=== PATIENT | female | born 1975 | race Caucasian/White ===

== ENCOUNTER 2021-08-30 11:36 | Observation (INO) | payer OTHER ==
[2021-08-30] MEDS ORDERED: Reglan 10 MG/2 ML IV ONE (11:52)
[2021-08-30] MEDS ORDERED: Sodium Chloride 0.9% 1000 ML 1,000 ML IV STA (11:52)
[2021-08-30] MEDS ORDERED: TORAdol 30 mg Injection ONE (12:17)
[2021-08-30] MEDS ORDERED: Reglan 10 MG/2 ML ONE (12:17)
[2021-08-30] MEDS ORDERED: Sodium Chloride 0.9% 1000 ML 1,000 ML ONE (12:17)
--- NOTE | 2021-08-30 12:21 | ERPHSYRPT ---
- History of Present Illness Time Seen by Provider: 08/30/21 11:50 Historian: patient Patient Subjective Stated Complaint: Pt has had diarrhea for a week and vomited once yesterday and then woke up today with RLQ pain and watery diarrhea and vomiting, pt lives at [facility] and there have been reports of C-Diff within the facility Triage Nursing Assessment: Pt brought to the ER by a healthcare worker, hypotensive, rates abdominal pain as 10/10, diarrhea, vomiting, pain with palpatation to panfilo quadrants, last used meth 13-14 days ago, skin n/w/d, no difficulty with breathing, appears to be in significant pain, is on suboxone Physician History: Patient is a 45-year-old female who is a resident at a treatment center in [facility]. She presents with a complaint of severe diarrhea for a week when asked the frequency of her stools she says all day long. She has had some nausea and some vomiting since yesterday and for the 2 hours prior to arrival severe abdominal pain. She has had fever chills but no sweats Timing/Duration: week(s) (1) Activities at Onset: none Quality: cramping, stabbing Abdominal Pain Onset Location: RUQ Severity of Pain-Max: moderate Severity of Pain-Current: severe Associated Symptoms: diaphoresis, diarrhea, nausea, vomiting Allergies/Adverse Reactions: gabapentin Allergy (Verified 08/30/21 12:10) Home Medications: Buprenorphine HCl/Naloxone HCl [Suboxone 4 mg-1 mg Sl Film] 1 each SL BID 08/30/21 [History] Travel Risk - International Travel Have you traveled outside of the country in past 3 weeks: No - Coronavirus Screening Are you exhibiting any of the following symptoms?: Yes Symptoms: Vomiting/Diarrhea Close contact with a COVID-19 positive Pt in past 14-21 Days: No - Vaccine Status Have you recieved a Covid-19 vaccination: No - Review of Systems Constitutional: No Fever, No Chills Eyes: No Symptoms Ears, Nose, & Throat: No Symptoms Respiratory: No Cough, No Dyspnea Cardiac: No Chest Pain, No Edema, No Syncope Abdominal/Gastrointestinal: Abdominal Pain, Nausea, Vomiting, Diarrhea Genitourinary Symptoms: No Dysuria Musculoskeletal: No Back Pain, No Neck Pain Skin: No Rash Neurological: No Dizziness, No Focal Weakness, No Sensory Changes Psychological: No Symptoms Endocrine: No Symptoms All Other Systems: Reviewed and Negative - Past Medical History Pertinent Past Medical History: Yes GI Medical History: GERD Psycho-Social History: Anxiety - Past Surgical History Past Surgical History: Yes Female Surgical History: Section - Social History Smoking Status: Current every day smoker Exposure to second hand smoke: Yes Drug Use: methamphetamines Patient Lives Alone: No - Female History Hx Last Menstrual Period: 08/14/2021 Hx Now: No - Nursing Vital Signs Nursing Vital Signs: Initial Vital Signs Temperature 97.3 F 08/30/21 11:46 Pulse Rate 94 H 08/30/21 11:46 Blood Pressure 106/69 08/30/21 11:46 O2 Sat by Pulse Oximetry 97 08/30/21 11:46 Pain Scale Pain Intensity 10 - Physical Exam General Appearance: moderate distress, alert Eye Exam: PERRL/EOMI, eyes nml inspection Ears, Nose, Throat Exam: normal ENT inspection, pharynx normal, moist mucous membranes Neck Exam: normal inspection, non-tender, supple, full range of motion Respiratory Exam: normal breath sounds, lungs clear, No respiratory distress Cardiovascular Exam: regular rate/rhythm, normal heart sounds Gastrointestinal/Abdomen Exam: normal bowel sounds, tenderness, guarding, rebou nd, No mass Back Exam: normal inspection, normal range of motion, No CVA tenderness, No vertebral tenderness Extremity Exam: normal inspection, normal range of motion, pelvis stable Neurologic Exam: alert, oriented x 3, cooperative, normal mood/affect, nml cerebellar function, sensation nml, No motor deficits Skin Exam: normal color, warm, dry SpO2: 97 - Course Nursing assessment & vital signs reviewed: Yes - CT Exams Abdomen/Pelvis CT Interpretation: Other (CT of the abdomen showed fluid-filled dilated loops of large and small bowel also distention of the gallbladder with some stones visible. ) - Radiology Ultrasound Exam Gallbladder Ultrasound: Other (Gallbladder is distended there are stones present but no othe r signs of cholelithiasis are present) Ordered Tests: Active Orders 24 hr Category Date Time Status IV Insertion STAT Care 08/30/21 11:52 Active ABDOMEN AND PELVIS W/0 CONTRAS [CT] Stat Exams 08/30/21 11:53 Completed GALLBLADDER [US] Stat Exams 08/30/21 12:53 Completed AMYLASE Stat Lab 08/30/21 12:23 Completed BLOOD CULTURE Stat Lab 08/30/21 12:12 Received CBC W DIFF Stat Lab 08/30/21 12:23 Completed CMP Stat Lab 08/30/21 12:23 Completed FECAL OCCULT BLOOD - SCREENING Stat Lab 08/30/21 12:14 Completed LIPASE Stat Lab 08/30/21 12:23 Completed Lactic Acid Stat Lab 08/30/21 12:10 Completed PROTIME WITH INR Stat Lab 08/30/21 12:23 Completed UA W/RFX CULTURE Stat Lab 08/30/21 12:12 Completed Medication Summary Discontinued Medications Generic Name Dose Route Start Last Admin Trade Name Sam PRN Reason Stop Dose Admin Sodium Chloride 1,000 mls @ 999 mls/hr 08/30/21 11:52 08/30/21 13:35 Sodium Chloride 0.9% 1000 Ml IV 08/30/21 12:52 Infused .Q1H1M STA Infusion Sodium Chloride Confirm 08/30/21 12:17 Sodium Chloride 0.9% 1000 Ml Administered 08/30/21 12:18 Dose 1,000 mls @ ud .ROUTE .STK-MED ONE Ketorolac Tromethamine Confirm 08/30/21 12:17 Ketorolac Tromethamine 30 Mg/Ml Inj Administered 08/30/21 12:18 Dose 30 mg .ROUTE .STK-MED ONE Ketorolac Tromethamine 30 mg 08/30/21 12:36 08/30/21 12:38 Ketorolac Tromethamine 30 Mg/Ml Inj IV 08/30/21 12:37 30 mg STAT ONE Administration Metoclopramide HCl 10 mg 08/30/21 11:52 08/30/21 12:20 Metoclopramide Hcl 10 Mg/2 Ml Vial IV 08/30/21 11:53 10 mg STAT ONE Administration Metoclopramide HCl Confirm 08/30/21 12:17 Metoclopramide Hcl 10 Mg/2 Ml Vial Administered 08/30/21 12:18 Dose 10 mg .ROUTE .STK-MED ONE Lab/Rad Data: Laboratory Result Diagrams 08/30/21 12:23 08/30/21 12:23 Laboratory Results 08/30/21 08/30/21 08/30/21 Range/Units 12:30 12:23 12:23 WBC (4.0-10.5) x10^3/uL RBC (4.1-5.4) x10^6/uL Hgb (12.0-16.0) g/dL Hct (35-47) % MCV (78-100) fL MCH (26-32) pg MCHC (32-36) g/dL RDW (11.5-14.0) % Plt Count (150-450) x10^3/uL MPV (7.5-11.0) fL Gran % (36.0-66.0) % Immature Gran % (Auto) (0.00-0.4) % Nucleat RBC Rel Count (0.00-0.1) % Eos # (Auto) (0-0.5) x10^3/uL Immature Gran # (Auto) (0.00-0.03) x10^3u/L Absolute Lymphs (auto) (1.0-4.6) x10^3/uL Absolute Monos (auto) (0.0-1.3) x10^3/uL Absolute Nucleated RBC (0.00-0.01) x10^3u/L Lymphocytes % (24.0-44.0) % Monocytes % (0.0-12.0) % Eosinophils % (0.00-5.0) % Basophils % (0.0-0.4) % Absolute Granulocytes (1.4-6.9) x10^3/uL Basophils # (0-0.4) x10^3/uL PT 11.6 (9.4-12.5) SECONDS INR 1.10 (0.8-3.0) Sodium 135 L (137-145) mmol/L Potassium 4.1 (3.5-5.1) mmol/L Chloride 106 (98-107) mmol/L Carbon Dioxide 18 L (22-30) mmol/L Anion Gap 15.2 H (5-15) MEQ/L BUN 10 (7-17) mg/dL Creatinine 0.68 (0.52-1.04) mg/dL Estimated GFR > 60.0 ML/MIN Glucose 98 (74-106) mg/dL Lactic Acid (0.4-2.0) Calcium 9.0 (8.4-10.2) mg/dL Total Bilirubin 0.40 (0.2-1.3) mg/dL AST 18 (14-36) U/L ALT 11 (0-35) U/L Alkaline Phosphatase 90 (38-126) U/L Serum Total Protein 6.8 (6.3-8.2) g/dL Albumin 3.6 (3.5-5.0) g/dL Amylase 50 (30-110) U/L Lipase 28 (23-300) U/L Urinalys Dipstick Clnc Urine Color (YELLOW) Urine Appearance (CLEAR) Urine pH (5-6) Ur Specific Sabael (1.005-1.025) POC Urine Protein Conf (Negative) Urine Ketones (NEGATIVE) Urine Nitrite (NEGATIVE) Urine Bilirubin (NEGATIVE) Urine Urobilinogen (0-1) mg/dL Urine Leukocytes (NEGATIVE) Urine WBC (Auto) (0-5) /HPF Urine RBC (Auto) (0-2) /HPF Urine Bacteria (Auto) (NEGATIVE) /HPF Urine RBC (0-5) Crishtian/ul Ur Culture Indicated? Urine Glucose (NEGATIVE) mg/dL Stool Occult Blood (NEGATIVE) C. difficile Screen POSITIVE (NEGATIVE) C.difficile 027-NAP1-B1 PRESUMPTIVE NEGATIVE (NEGATIVE) 08/30/21 08/30/21 08/30/21 Range/Units 12:23 12:14 12:12 WBC 9.6 (4.0-10.5) x10^3/uL RBC 4.69 (4.1-5.4) x10^6/uL Hgb 13.0 (12.0-16.0) g/dL Hct 41.5 (35-47) % MCV 88.5 (78-100) fL MCH 27.7 (26-32) pg MCHC 31.3 L (32-36) g/dL RDW 14.8 H (11.5-14.0) % Plt Count 291 (150-450) x10^3/uL MPV 9.6 (7.5-11.0) fL Gran % 73.2 H (36.0-66.0) % Immature Gran % (Auto) 0.5 H (0.00-0.4) % Nucleat RBC Rel Count 0.0 (0.00-0.1) % Eos # (Auto) 0.35 (0-0.5) x10^3/uL Immature Gran # (Auto) 0.05 H (0.00-0.03) x10^3u/L Absolute Lymphs (auto) 1.42 (1.0-4.6) x10^3/uL Absolute Monos (auto) 0.75 (0.0-1.3) x10^3/uL Absolute Nucleated RBC 0.00 (0.00-0.01) x10^3u/L Lymphocytes % 14.7 L (24.0-44.0) % Monocytes % 7.8 (0.0-12.0) % Eosinophils % 3.6 (0.00-5.0) % Basophils % 0.2 (0.0-0.4) % Absolute Granulocytes 7.05 H (1.4-6.9) x10^3/uL Basophils # 0.02 (0-0.4) x10^3/uL PT (9.4-12.5) SECONDS INR (0.8-3.0) Sodium (137-145) mmol/L Potassium (3.5-5.1) mmol/L Chloride (98-107) mmol/L Carbon Dioxide (22-30) mmol/L Anion Gap (5-15) MEQ/L BUN (7-17) mg/dL Creatinine (0.52-1.04) mg/dL Estimated GFR ML/MIN Glucose (74-106) mg/dL Lactic Acid (0.4-2.0) Calcium (8.4-10.2) mg/dL Total Bilirubin (0.2-1.3) mg/dL AST (14-36) U/L ALT (0-35) U/L Alkaline Phosphatase (38-126) U/L Serum Total Protein (6.3-8.2) g/dL Albumin (3.5-5.0) g/dL Amylase (30-110) U/L Lipase (23-300) U/L Urinalys Dipstick Clnc MAIN LAB Urine Color YELLOW (YELLOW) Urine Appearance CLEAR (CLEAR) Urine pH 5.5 (5-6) Ur Specific Sabael 1.010 (1.005-1.025) POC Urine Protein Conf NEGATIVE (Negative) Urine Ketones NEGATIVE (NEGATIVE) Urine Nitrite NEGATIVE (NEGATIVE) Urine Bilirubin NEGATIVE (NEGATIVE) Urine Urobilinogen 0.2 (0-1) mg/dL Urine Leukocytes NEGATIVE (NEGATIVE) Urine WBC (Auto) 3-5 (0-5) /HPF Urine RBC (Auto) 0-2 (0-2) /HPF Urine Bacteria (Auto) RARE (NEGATIVE) /HPF Urine RBC NEGATIVE (0-5) Cristhian/ul Ur Culture Indicated? NO Urine Glucose NEGATIVE (NEGATIVE) mg/dL Stool Occult Blood POSITIVE A (NEGATIVE) C. difficile Screen (NEGATIVE) C.difficile 027-NAP1-B1 (NEGATIVE) 08/30/21 Range/Units 12:10 WBC (4.0-10.5) x10^3/uL RBC (4.1-5.4) x10^6/uL Hgb (12.0-16.0) g/dL Hct (35-47) % MCV (78-100) fL MCH (26-32) pg MCHC (32-36) g/dL RDW (11.5-14.0) % Plt Count (150-450) x10^3/uL MPV (7.5-11.0) fL Gran % (36.0-66.0) % Immature Gran % (Auto) (0.00-0.4) % Nucleat RBC Rel Count (0.00-0.1) % Eos # (Auto) (0-0.5) x10^3/uL Immature Gran # (Auto) (0.00-0.03) x10^3u/L Absolute Lymphs (auto) (1.0-4.6) x10^3/uL Absolute Monos (auto) (0.0-1.3) x10^3/uL Absolute Nucleated RBC (0.00-0.01) x10^3u/L Lymphocytes % (24.0-44.0) % Monocytes % (0.0-12.0) % Eosinophils % (0.00-5.0) % Basophils % (0.0-0.4) % Absolute Granulocytes (1.4-6.9) x10^3/uL Basophils # (0-0.4) x10^3/uL PT (9.4-12.5) SECONDS INR (0.8-3.0) Sodium (137-145) mmol/L Potassium (3.5-5.1) mmol/L Chloride (98-107) mmol/L Carbon Dioxide (22-30) mmol/L Anion Gap (5-15) MEQ/L BUN (7-17) mg/dL Creatinine (0.52-1.04) mg/dL Estimated GFR ML/MIN Glucose (74-106) mg/dL Lactic Acid 0.9 (0.4-2.0) Calcium (8.4-10.2) mg/dL Total Bilirubin (0.2-1.3) mg/dL AST (14-36) U/L ALT (0-35) U/L Alkaline Phosphatase (38-126) U/L Serum Total Protein (6.3-8.2) g/dL Albumin (3.5-5.0) g/dL Amylase (30-110) U/L Lipase (23-300) U/L Urinalys Dipstick Clnc Urine Color (YELLOW) Urine Appearance (CLEAR) Urine pH (5-6) Ur Specific Sabael (1.005-1.025) POC Urine Protein Conf (Negative) Urine Ketones (NEGATIVE) Urine Nitrite (NEGATIVE) Urine Bilirubin (NEGATIVE) Urine Urobilinogen (0-1) mg/dL Urine Leukocytes (NEGATIVE) Urine WBC (Auto) (0-5) /HPF Urine RBC (Auto) (0-2) /HPF Urine Bacteria (Auto) (NEGATIVE) /HPF Urine RBC (0-5) Cristhian/ul Ur Culture Indicated? Urine Glucose (NEGATIVE) mg/dL Stool Occult Blood (NEGATIVE) C. difficile Screen (NEGATIVE) C.difficile 027-NAP1-B1 (NEGATIVE) - Progress Progress: unchanged Discussed with : Gigi Will see patient in: hospital (observation) - Departure Departure Disposition: Observation Clinical Impression: C. difficile colitis Condition: Stable Critical Care Time: No Referrals: DOCTOR,NO FAMILY [Primary Care Provider] - Follow up/PCP as directed Instructions: Clostridioides difficile
[2021-08-30] MEDS ORDERED: TORAdol 30 mg Injection IV ONE (12:36)
--- NOTE | 2021-08-30 12:51 | XRAY ---
Indication: Abdomen pain, nausea, vomiting, and diarrhea. Multiple contiguous axial images obtained through the abdomen and pelvis without contrast. Comparison: None Lung bases clear. Heart not enlarged. Noncontrasted stomach and bowel loops appear nonobstructed. Mild uniformly fluid distended small and large bowel loops throughout with fluid leveling, ileus versus enterocolitis. Normal appearing appendix with 3-4 mm appendicolith at base. No free fluid/air. Gallbladder mildly distended with at least 2 gallstones, largest 1.3 cm. Incidental 15.6 cm splenomegaly. Remaining liver, gallbladder, pancreas, spleen, adrenal glands, kidneys, ureters, bladder, uterus, and aorta are unremarkable for noncontrast exam. Osseous structures intact. Impression: 1. Mild fluid distended small and large bowel loops with fluid leveling, ileus versus enterocolitis. 2. Mild distended gallbladder with cholelithiasis. Sonogram may yield further information if clinically warranted. 3. Incidental splenomegaly and tiny appendicolith
[2021-08-30 12:58] LABS: Absolute Neutrophil Ct (ANC) 7.05 x10^3/uL (1.4-6.9); Basophil (Absolute #) 0.02 x10^3/uL (0-0.4); Eosinophil % 3.6 % (0.00-5.0); Eosinophil (Absolute #) 0.35 x10^3/uL (0-0.5); Hematocrit 41.5 % (35-47); Lymphocyte (Absolute #) 1.42 x10^3/uL (1.0-4.6); Lymphocytes % 14.7 % (24.0-44.0); Mean Cell Volume 88.5 fL (78-100); Mean Corpuscular Hemoglobin 27.7 pg (26-32); Mean Corpuscular Hgb Concent. 31.3 g/dL (32-36); Mean Platelet Volume 9.6 fL (7.5-11.0); Monocyte (Absolute #) 0.75 x10^3/uL (0.0-1.3); Monocytes % 7.8 % (0.0-12.0); Neutrophil % 73.2 % (36.0-66.0); Platelet Count 291 x10^3/uL (150-450); Red Blood Count 4.69 x10^6/uL (4.1-5.4); Red Cell Distribution Width 14.8 % (11.5-14.0); White Blood Count 9.6 x10^3/uL (4.0-10.5)
[2021-08-30 13:04] LABS: ALBUMIN 3.6 g/dL (3.5-5.0); ALKALINE PHOSPHATASE 90 U/L (38-126); AMYLASE 50 U/L (30-110); ANION GAP 15.2 MEQ/L (5-15); BLOOD UREA NITROGEN 10 mg/dL (7-17); CHLORIDE 106 mmol/L (98-107); Carbon Dioxide 18 mmol/L (22-30); Creatinine 1 0.68 mg/dL (0.52-1.04); EST GLOMERULAR FILTRATION RATE > 60.0 ML/MIN; Glucose 98 mg/dL (74-106); LIPASE 28 U/L (23-300); Potassium 4.1 mmol/L (3.5-5.1); SGOT/AST 18 U/L (14-36); SGPT/ALT 11 U/L (0-35); SODIUM 135 mmol/L (137-145); Total Protein 6.8 g/dL (6.3-8.2)
--- NOTE | 2021-08-30 13:07 | XRAY ---
Indication: Right upper quadrant pain, nausea, and vomiting. Two-dimensional gallbladder sonogram performed. Comparison: None Pancreas not well-seen due to overlying bowel gas. Gallbladder moderately distended with a few gallstones, largest 1.5 cm. No abnormal gallbladder wall thickening or pericholecystic fluid. Common bile duct measures 5.3 mm. No intrahepatic biliary distention. Remaining visualized liver and right kidney are sonographically unremarkable. Right kidney measures 9.5 cm in length. Impression: Nonvisualization pancreas. Distended gallbladder with cholelithiasis but no cholecystitis or biliary distention.
[2021-08-30 13:19] LABS: Bacteria RARE /HPF (NEGATIVE); RBC 0-2 /HPF (0-2)
[2021-08-30 13:20] LABS: INR 1.1 (0.8-3.0); PROTIME 11.6 SECONDS (9.4-12.5)
[2021-08-30 13:22] LABS: Appearance CLEAR (CLEAR); Bilirubin NEGATIVE (NEGATIVE); Glucose NEGATIVE (NEGATIVE); Ketones NEGATIVE (NEGATIVE); Nitrite NEGATIVE (NEGATIVE); Ph 5.5 (5-6); Protein,Urine Dip NEGATIVE (Negative); RBC NEGATIVE Ery/ul (0-5); Urine Cultured Indicated? NO; Urobilinogen 0.2 mg/dL (0-1)
[2021-08-30 13:23] LABS: Dipstick done @ ? MAIN LAB
[2021-08-30 13:49] LABS: 027 TOX PROD PRESUMPTIVE NEGATIVE (NEGATIVE)
[2021-08-30 13:51] LABS: TOXIGENIC C. DIFF ORG POSITIVE (NEGATIVE)
[2021-08-30] MEDS ORDERED: Sodium Chloride 0.9% 1000 ML 1,000 ML IV SCH (14:00)
[2021-08-30] MEDS ORDERED: Zofran 4 MG/2 ML VIAL IV PRN (14:06)
[2021-08-30] MEDS ORDERED: VANCOMYCIN 1 GRAM/200 ML BAG 1 GM/200 ML PIGGYBACK IV SCH (14:15)
[2021-08-30] MEDS: Hydromorphone 1 mg/ml Injection IV PRN ×2 (14:18→18:29)
[2021-08-30 15:19] LABS: INFLUENZA A NEGATIVE (NEGATIVE); INFLUENZA B NEGATIVE (NEGATIVE); RESPIRATORY SYNCTIAL VIRUS NEGATIVE (Negative); SARS-CoV-2 Xpert Express NEGATIVE (NEGATIVE)
--- NOTE | 2021-08-30 17:16 | PCM.HP ---
History of Present Illness - Chief Complaint Chief Complaint: C. Difficile History of Present Illness: is a 45 year old female who is living at [facility] on Suboxone for Meth addiction . Patient presented to ER c/o weakness from a week long diarrhea . ER Eval. - tested positive for C dif and heme positive stool. CT abd/pelvis showed a mildy distended GB with a few gallstone. See GB US,spleen is enlarged. PMHx C/S 17 months ago,denies use of antibiotics, GERD,Anxiety. States not under the care of a PCP at this time.Her cousin is caring for her 17 month old daughter. - Review of Systems Constitutional: Weakness, Other (spell of diaphoresis) Eyes: No Symptoms Ears, Nose, & Throat: No Symptoms Respiratory: No Symptoms Cardiac: No Symptoms Abdominal/Gastrointestinal: Abdominal Pain (upper), Nausea, Vomiting, Diarrhea Genitourinary Symptoms: No Symptoms Skin: No Symptoms Neurological: No Symptoms Psychological: Anxiety, Other (Meth addiction on Suboxone) Endocrine: No Symptoms Hematologic/Lymphatic: No Symptoms Medications & Allergies Home Medications: Home Medication List Atomoxetine HCl [Strattera] 40 mg PO DAILY 08/30/21 [History Confirmed 08/30/21] Buprenorphine HCl/Naloxone HCl [Suboxone 4 mg-1 mg Sl Film] 1 each SL BID 08/30/21 [History Confirmed 08/30/21] Escitalopram Oxalate [Lexapro] 10 mg PO DAILY 08/30/21 [History Confirmed 08/30/21] Ferrous Sulfate 325 mg [Feosol 325 mg] 325 mg PO DAILY 08/30/21 [History Confirmed 08/30/21] Multivitamin 1 each PO DAILY 08/30/21 [History Confirmed 08/30/21] Omeprazole 20 mg PO DAILY 08/30/21 [History Confirmed 08/30/21] Prazosin HCl 1 mg PO QHS 08/30/21 [History Confirmed 08/30/21] Promethazine HCl 25 mg [Phenergan 25 mg] 25 mg PO Q6HPRN PRN 08/30/21 [History Confirmed 08/30/21] Trazodone HCl 50 mg [Desyrel 50 mg] 50 mg PO QHS 08/30/21 [History Confirmed 08/30/21] Allergies/Adverse Reactions: Allergies Allergy/AdvReac Type Severity Reaction Status Date / Time gabapentin Allergy Verified 08/30/21 12:10 propoxyphene AdvReac Rash Verified 08/30/21 17:04 [From Darvocet-N] - Past Medical History Past Medical History: Yes GI Medical History: GERD Pyscho-Social History: Anxiety - Female History Hx Last Menstrual Period: 08/14/2021 Are you now?: No - Past Surgical History Past Surgical History: Yes Female Surgical History: Section Other Surgical History: CSECTION X3 - Social History Smoking Status: Current every day smoker Exposure to second hand smoke: Yes Alcohol: None Drug Use: methamphetamines - Physical Exam Vital Signs: Vital Signs - 24 hr Temp Pulse Resp BP Pulse Ox 08/30/21 16:03 97.7 F 84 23 104/58 97 08/30/21 13:59 97 08/30/21 13:08 85 100/47 98 08/30/21 11:46 97.3 F 94 H 106/69 97 General Appearance: no apparent distress Neurologic Exam: alert, oriented x 3, cooperative, normal mood/affect Eye Exam: eyes nml inspection Ears, Nose, Throat Exam: normal ENT inspection Neck Exam: normal inspection Respiratory Exam: normal breath sounds Cardiovascular Exam: regular rate/rhythm Gastrointestinal/Abdomen Exam: soft, normal bowel sounds, tenderness (across upper abdomenno guarding) Pelvic Exam: not done Rectal Exam: not done Back Exam: normal inspection Extremity Exam: normal inspection Skin Exam: normal color, warm, dry Results - Labs Lab/Micro Results: Lab Results-Last 24 Hours 08/30/21 08/30/21 08/30/21 Range/Units 12:10 12:12 12:14 WBC (4.0-10.5) x10^3/uL RBC (4.1-5.4) x10^6/uL Hgb (12.0-16.0) g/dL Hct (35-47) % MCV (78-100) fL MCH (26-32) pg MCHC (32-36) g/dL RDW (11.5-14.0) % Plt Count (150-450) x10^3/uL MPV (7.5-11.0) fL Gran % (36.0-66.0) % Immature Gran % (Auto) (0.00-0.4) % Nucleat RBC Rel Count (0.00-0.1) % Eos # (Auto) (0-0.5) x10^3/uL Immature Gran # (Auto) (0.00-0.03) x10^3u/L Absolute Lymphs (auto) (1.0-4.6) x10^3/uL Absolute Monos (auto) (0.0-1.3) x10^3/uL Absolute Nucleated RBC (0.00-0.01) x10^3u/L Lymphocytes % (24.0-44.0) % Monocytes % (0.0-12.0) % Eosinophils % (0.00-5.0) % Basophils % (0.0-0.4) % Absolute Granulocytes (1.4-6.9) x10^3/uL Basophils # (0-0.4) x10^3/uL PT (9.4-12.5) SECONDS INR (0.8-3.0) Sodium (137-145) mmol/L Potassium (3.5-5.1) mmol/L Chloride (98-107) mmol/L Carbon Dioxide (22-30) mmol/L Anion Gap (5-15) MEQ/L BUN (7-17) mg/dL Creatinine (0.52-1.04) mg/dL Estimated GFR ML/MIN Glucose (74-106) mg/dL Lactic Acid 0.9 (0.4-2.0) Calcium (8.4-10.2) mg/dL Total Bilirubin (0.2-1.3) mg/dL AST (14-36) U/L ALT (0-35) U/L Alkaline Phosphatase (38-126) U/L Serum Total Protein (6.3-8.2) g/dL Albumin (3.5-5.0) g/dL Amylase (30-110) U/L Lipase (23-300) U/L Urinalys Dipstick Clnc MAIN LAB Urine Color YELLOW (YELLOW) Urine Appearance CLEAR (CLEAR) Urine pH 5.5 (5-6) Ur Specific [place] 1.010 (1.005-1.025) POC Urine Protein Conf NEGATIVE (Negative) Urine Ketones NEGATIVE (NEGATIVE) Urine Nitrite NEGATIVE (NEGATIVE) Urine Bilirubin NEGATIVE (NEGATIVE) Urine Urobilinogen 0.2 (0-1) mg/dL Urine Leukocytes NEGATIVE (NEGATIVE) Urine WBC (Auto) 3-5 (0-5) /HPF Urine RBC (Auto) 0-2 (0-2) /HPF Urine Bacteria (Auto) RARE (NEGATIVE) /HPF Urine RBC NEGATIVE (0-5) Cristhian/ul Ur Culture Indicated? NO Urine Glucose NEGATIVE (NEGATIVE) mg/dL Stool Occult Blood POSITIVE A (NEGATIVE) C. difficile Screen (NEGATIVE) C.difficile 027-NAP1-B1 (NEGATIVE) Influenza Type A Ag (NEGATIVE) Influenza Type B Ag (NEGATIVE) RSV (PCR) (Negative) SARS-CoV-2 (PCR) (NEGATIVE) 08/30/21 08/30/21 08/30/21 Range/Units 12:23 12:23 12:23 WBC 9.6 (4.0-10.5) x10^3/uL RBC 4.69 (4.1-5.4) x10^6/uL Hgb 13.0 (12.0-16.0) g/dL Hct 41.5 (35-47) % MCV 88.5 (78-100) fL MCH 27.7 (26-32) pg MCHC 31.3 L (32-36) g/dL RDW 14.8 H (11.5-14.0) % Plt Count 291 (150-450) x10^3/uL MPV 9.6 (7.5-11.0) fL Gran % 73.2 H (36.0-66.0) % Immature Gran % (Auto) 0.5 H (0.00-0.4) % Nucleat RBC Rel Count 0.0 (0.00-0.1) % Eos # (Auto) 0.35 (0-0.5) x10^3/uL Immature Gran # (Auto) 0.05 H (0.00-0.03) x10^3u/L Absolute Lymphs (auto) 1.42 (1.0-4.6) x10^3/uL Absolute Monos (auto) 0.75 (0.0-1.3) x10^3/uL Absolute Nucleated RBC 0.00 (0.00-0.01) x10^3u/L Lymphocytes % 14.7 L (24.0-44.0) % Monocytes % 7.8 (0.0-12.0) % Eosinophils % 3.6 (0.00-5.0) % Basophils % 0.2 (0.0-0.4) % Absolute Granulocytes 7.05 H (1.4-6.9) x10^3/uL Basophils # 0.02 (0-0.4) x10^3/uL PT 11.6 (9.4-12.5) SECONDS INR 1.10 (0.8-3.0) Sodium 135 L (137-145) mmol/L Potassium 4.1 (3.5-5.1) mmol/L Chloride 106 (98-107) mmol/L Carbon Dioxide 18 L (22-30) mmol/L Anion Gap 15.2 H (5-15) MEQ/L BUN 10 (7-17) mg/dL Creatinine 0.68 (0.52-1.04) mg/dL Estimated GFR > 60.0 ML/MIN Glucose 98 (74-106) mg/dL Lactic Acid (0.4-2.0) Calcium 9.0 (8.4-10.2) mg/dL Total Bilirubin 0.40 (0.2-1.3) mg/dL AST 18 (14-36) U/L ALT 11 (0-35) U/L Alkaline Phosphatase 90 (38-126) U/L Serum Total Protein 6.8 (6.3-8.2) g/dL Albumin 3.6 (3.5-5.0) g/dL Amylase 50 (30-110) U/L Lipase 28 (23-300) U/L Urinalys Dipstick Clnc Urine Color (YELLOW) Urine Appearance (CLEAR) Urine pH (5-6) Ur Specific [place] (1.005-1.025) POC Urine Protein Conf (Negative) Urine Ketones (NEGATIVE) Urine Nitrite (NEGATIVE) Urine Bilirubin (NEGATIVE) Urine Urobilinogen (0-1) mg/dL Urine Leukocytes (NEGATIVE) Urine WBC (Auto) (0-5) /HPF Urine RBC (Auto) (0-2) /HPF Urine Bacteria (Auto) (NEGATIVE) /HPF Urine RBC (0-5) Cristhian/ul Ur Culture Indicated? Urine Glucose (NEGATIVE) mg/dL Stool Occult Blood (NEGATIVE) C. difficile Screen (NEGATIVE) C.difficile 027-NAP1-B1 (NEGATIVE) Influenza Type A Ag (NEGATIVE) Influenza Type B Ag (NEGATIVE) RSV (PCR) (Negative) SARS-CoV-2 (PCR) (NEGATIVE) 08/30/21 08/30/21 Range/Units 12:30 14:14 WBC (4.0-10.5) x10^3/uL RBC (4.1-5.4) x10^6/uL Hgb (12.0-16.0) g/dL Hct (35-47) % MCV (78-100) fL MCH (26-32) pg MCHC (32-36) g/dL RDW (11.5-14.0) % Plt Count (150-450) x10^3/uL MPV (7.5-11.0) fL Gran % (36.0-66.0) % Immature Gran % (Auto) (0.00-0.4) % Nucleat RBC Rel Count (0.00-0.1) % Eos # (Auto) (0-0.5) x10^3/uL Immature Gran # (Auto) (0.00-0.03) x10^3u/L Absolute Lymphs (auto) (1.0-4.6) x10^3/uL Absolute Monos (auto) (0.0-1.3) x10^3/uL Absolute Nucleated RBC (0.00-0.01) x10^3u/L Lymphocytes % (24.0-44.0) % Monocytes % (0.0-12.0) % Eosinophils % (0.00-5.0) % Basophils % (0.0-0.4) % Absolute Granulocytes (1.4-6.9) x10^3/uL Basophils # (0-0.4) x10^3/uL PT (9.4-12.5) SECONDS INR (0.8-3.0) Sodium (137-145) mmol/L Potassium (3.5-5.1) mmol/L Chloride (98-107) mmol/L Carbon Dioxide (22-30) mmol/L Anion Gap (5-15) MEQ/L BUN (7-17) mg/dL Creatinine (0.52-1.04) mg/dL Estimated GFR ML/MIN Glucose (74-106) mg/dL Lactic Acid (0.4-2.0) Calcium (8.4-10.2) mg/dL Total Bilirubin (0.2-1.3) mg/dL AST (14-36) U/L ALT (0-35) U/L Alkaline Phosphatase (38-126) U/L Serum Total Protein (6.3-8.2) g/dL Albumin (3.5-5.0) g/dL Amylase (30-110) U/L Lipase (23-300) U/L Urinalys Dipstick Clnc Urine Color (YELLOW) Urine Appearance (CLEAR) Urine pH (5-6) Ur Specific [place] (1.005-1.025) POC Urine Protein Conf (Negative) Urine Ketones (NEGATIVE) Urine Nitrite (NEGATIVE) Urine Bilirubin (NEGATIVE) Urine Urobilinogen (0-1) mg/dL Urine Leukocytes (NEGATIVE) Urine WBC (Auto) (0-5) /HPF Urine RBC (Auto) (0-2) /HPF Urine Bacteria (Auto) (NEGATIVE) /HPF Urine RBC (0-5) Cristhian/ul Ur Culture Indicated? Urine Glucose (NEGATIVE) mg/dL Stool Occult Blood (NEGATIVE) C. difficile Screen POSITIVE (NEGATIVE) C.difficile 027-NAP1-B1 PRESUMPTIVE NEGATIVE (NEGATIVE) Influenza Type A Ag NEGATIVE (NEGATIVE) Influenza Type B Ag NEGATIVE (NEGATIVE) RSV (PCR) NEGATIVE (Negative) SARS-CoV-2 (PCR) NEGATIVE (NEGATIVE) - Radiology Impressions Radiology Exams & Impressions: Radiology Procedures Category Date Time Status ABDOMEN AND PELVIS W/0 CONTRAS [CT] Stat Exams 08/30/21 11:53 Completed GALLBLADDER [US] Stat Exams 08/30/21 12:53 Completed Assessment/Plan (1) C. difficile colitis Current Visit: Yes Status: Acute Assessment & Plan: IV flagyl 500mg q8h. Note Vanc was started in ER but pharmacist advised against this since 1st time Cdiff. Code(s): A04.72 - ENTEROCOLITIS D/T CLOSTRIDIUM DIFFICILE, NOT SPCF RECUR (2) Volume depletion Current Visit: Yes Status: Acute Assessment & Plan: IV fluids,monitor Code(s): E86.9 - VOLUME DEPLETION, UNSPECIFIED (3) Gall stones Current Visit: Yes Status: Acute Assessment & Plan: Surgery consult Code(s): K80.20 - CALCULUS OF GALLBLADDER W/O CHOLECYSTITIS W/O OBSTRUCTION (4) Splenomegaly Current Visit: Yes Status: Acute Assessment & Plan: unsure etiology,Hematology referral as outpatient. Code(s): R16.1 - SPLENOMEGALY, NOT ELSEWHERE CLASSIFIED (5) Methamphetamine addiction Current Visit: Yes Status: Acute Assessment & Plan: on suboxone at [facility] in [place] Code(s): F15.20 - OTHER STIMULANT DEPENDENCE, UNCOMPLICATED
[2021-08-30] MEDS ORDERED: MEDICATION INTERVENTION MC SCH ×3 (17:45)
[2021-08-30] MEDS ORDERED: FLAGYL 500 MG IVPB 500 MG/100 ML BAG IV SCH (18:00)
[2021-08-30] MEDS: FLAGYL 500 MG IVPB 500 MG/100 ML BAG IV SCH (18:26)
[2021-08-30] MEDS: Sodium Chloride 0.9% W/ 20 mEq KCl/LITER 1,000 ML IV SCH (20:32)
[2021-08-30] MEDS: TORAdol 30 mg Injection IV PRN (21:23)
[2021-08-30] MEDS: DESYREL 50 MG PO SCH (21:30)
[2021-08-30] MEDS ORDERED: BUPRENORPHINE HCL SL SCH (22:00)
[2021-08-30] MEDS ORDERED: NON-FORMULARY ITEM (Prazosin Hcl [Prazosin Hcl] 1 MG Capsule) PO SCH (22:00)
[2021-08-30] MEDS ORDERED: [UNRECOGNIZED DRUG - OTHER] SL SCH (22:00)
[2021-08-30] MEDS ORDERED: NALOXONE HCL SL SCH (22:00)
[2021-08-31] MEDS: FLAGYL 500 MG IVPB 500 MG/100 ML BAG IV SCH ×4 (00:10→22:17)
[2021-08-31] MEDS: TORAdol 30 mg Injection IV PRN ×3 (03:44→16:46)
[2021-08-31] MEDS: Sodium Chloride 0.9% W/ 20 mEq KCl/LITER 1,000 ML IV SCH ×2 (04:20→17:58)
[2021-08-31 06:03] LABS: Absolute Neutrophil Ct (ANC) 3.72 x10^3/uL (1.4-6.9); Basophil (Absolute #) 0.01 x10^3/uL (0-0.4); Eosinophil % 6.2 % (0.00-5.0); Eosinophil (Absolute #) 0.36 x10^3/uL (0-0.5); Hematocrit 34.4 % (35-47); Lymphocyte (Absolute #) 1.06 x10^3/uL (1.0-4.6); Lymphocytes % 18.2 % (24.0-44.0); Mean Cell Volume 88.2 fL (78-100); Mean Corpuscular Hemoglobin 28.2 pg (26-32); Mean Platelet Volume 9.3 fL (7.5-11.0); Monocyte (Absolute #) 0.64 x10^3/uL (0.0-1.3); Neutrophil % 63.9 % (36.0-66.0); Platelet Count 259 x10^3/uL (150-450); Red Cell Distribution Width 15.2 % (11.5-14.0); White Blood Count 5.8 x10^3/uL (4.0-10.5)
[2021-08-31 06:20] LABS: ALBUMIN 2.6 g/dL (3.5-5.0); ALKALINE PHOSPHATASE 63 U/L (38-126); ANION GAP 13.1 MEQ/L (5-15); BLOOD UREA NITROGEN 7 mg/dL (7-17); CHLORIDE 112 mmol/L (98-107); Calcium 7.9 mg/dL (8.4-10.2); Creatinine 1 0.62 mg/dL (0.52-1.04); EST GLOMERULAR FILTRATION RATE > 60.0 ML/MIN; Glucose 92 mg/dL (74-106); Potassium 4.3 mmol/L (3.5-5.1); SGOT/AST 15 U/L (14-36); SGPT/ALT 9 U/L (0-35); SODIUM 136 mmol/L (137-145); Total Protein 5.3 g/dL (6.3-8.2)
[2021-08-31 06:25] LABS: Carbon Dioxide 17 mmol/L (22-30)
[2021-08-31] MEDS: Protonix 40MG Tablet PO SCH (09:50)
[2021-08-31] MEDS: Lexapro PO SCH (09:50)
[2021-08-31] MEDS: THERAGRAN MULTIVITAMIN PO SCH (09:50)
[2021-08-31] MEDS: FEOSOL 325 MG PO SCH (09:50)
[2021-08-31] MEDS ORDERED: ATOMOXETINE HCL 40 MG PO SCH (10:00)
[2021-08-31] MEDS ORDERED: NON-FORMULARY ITEM (Omeprazole [Omeprazole] 20 MG Capsule.Dr) PO SCH (10:00)
[2021-08-31] MEDS ORDERED: NON-FORMULARY ITEM (Multivitamin [Multivitamin] 1 EACH Tablet) PO SCH (10:00)
--- NOTE | 2021-08-31 10:45 | PCM.NOTE ---
Date and Time: 08/31/21 1042 Subjective Assessment: patient continues to have significant diarrhea overnight and was incontinent of stool even. has some cramping in her abdomen/side. she is tolerating po intake Objective Exam General Appearance: no apparent distress, alert Respiratory Exam: normal breath sounds, lungs clear, No respiratory distress Cardiovascular Exam: regular rate/rhythm, normal heart sounds Gastrointestinal/Abdomen Exam: soft, normal bowel sounds, No tenderness, No mass OBJECTIVE DATA Vital Signs: Vital Signs - 24 hr Temp Pulse Resp BP Pulse Ox 08/31/21 07:15 97.9 F 73 16 108/59 98 08/31/21 04:00 99.4 F 87 18 108/65 98 08/31/21 00:00 98.9 F 84 18 100/55 98 08/30/21 20:00 97.5 F 84 20 101/58 98 08/30/21 17:05 97.7 F 84 23 104/58 97 08/30/21 16:03 97.7 F 84 23 104/58 97 08/30/21 13:59 97 08/30/21 13:08 85 100/47 98 08/30/21 11:46 97.3 F 94 H 106/69 97 Pain Assessment - Last Documented Pain Intensity 5 Pain Scale Used 0-10 Pain Scale Intake and Output: Intake & Output 08/28/21 08/29/21 08/30/21 08/31/21 11:59 11:59 11:59 11:59 Intake Total 3464 Balance 3464 Weight 90.718 kg 90.718 kg Lab Results: Lab Results-Last 24 Hours 08/30/21 08/30/21 08/30/21 Range/Units 12:10 12:12 12:14 WBC (4.0-10.5) x10^3/uL RBC (4.1-5.4) x10^6/uL Hgb (12.0-16.0) g/dL Hct (35-47) % MCV (78-100) fL MCH (26-32) pg MCHC (32-36) g/dL RDW (11.5-14.0) % Plt Count (150-450) x10^3/uL MPV (7.5-11.0) fL Gran % (36.0-66.0) % Immature Gran % (Auto) (0.00-0.4) % Nucleat RBC Rel Count (0.00-0.1) % Eos # (Auto) (0-0.5) x10^3/uL Immature Gran # (Auto) (0.00-0.03) x10^3u/L Absolute Lymphs (auto) (1.0-4.6) x10^3/uL Absolute Monos (auto) (0.0-1.3) x10^3/uL Absolute Nucleated RBC (0.00-0.01) x10^3u/L Lymphocytes % (24.0-44.0) % Monocytes % (0.0-12.0) % Eosinophils % (0.00-5.0) % Basophils % (0.0-0.4) % Absolute Granulocytes (1.4-6.9) x10^3/uL Basophils # (0-0.4) x10^3/uL PT (9.4-12.5) SECONDS INR (0.8-3.0) Sodium (137-145) mmol/L Potassium (3.5-5.1) mmol/L Chloride (98-107) mmol/L Carbon Dioxide (22-30) mmol/L Anion Gap (5-15) MEQ/L BUN (7-17) mg/dL Creatinine (0.52-1.04) mg/dL Estimated GFR ML/MIN Glucose (74-106) mg/dL Lactic Acid 0.9 (0.4-2.0) Calcium (8.4-10.2) mg/dL Total Bilirubin (0.2-1.3) mg/dL AST (14-36) U/L ALT (0-35) U/L Alkaline Phosphatase (38-126) U/L Serum Total Protein (6.3-8.2) g/dL Albumin (3.5-5.0) g/dL Amylase (30-110) U/L Lipase (23-300) U/L Urinalys Dipstick Clnc MAIN LAB Urine Color YELLOW (YELLOW) Urine Appearance CLEAR (CLEAR) Urine pH 5.5 (5-6) Ur Specific Post 1.010 (1.005-1.025) POC Urine Protein Conf NEGATIVE (Negative) Urine Ketones NEGATIVE (NEGATIVE) Urine Nitrite NEGATIVE (NEGATIVE) Urine Bilirubin NEGATIVE (NEGATIVE) Urine Urobilinogen 0.2 (0-1) mg/dL Urine Leukocytes NEGATIVE (NEGATIVE) Urine WBC (Auto) 3-5 (0-5) /HPF Urine RBC (Auto) 0-2 (0-2) /HPF Urine Bacteria (Auto) RARE (NEGATIVE) /HPF Urine RBC NEGATIVE (0-5) Cristhian/ul Ur Culture Indicated? NO Urine Glucose NEGATIVE (NEGATIVE) mg/dL Stool Occult Blood POSITIVE A (NEGATIVE) C. difficile Screen (NEGATIVE) C.difficile 027-NAP1-B1 (NEGATIVE) Influenza Type A Ag (NEGATIVE) Influenza Type B Ag (NEGATIVE) RSV (PCR) (Negative) SARS-CoV-2 (PCR) (NEGATIVE) 08/30/21 08/30/21 08/30/21 Range/Units 12:23 12:23 12:23 WBC 9.6 (4.0-10.5) x10^3/uL RBC 4.69 (4.1-5.4) x10^6/uL Hgb 13.0 (12.0-16.0) g/dL Hct 41.5 (35-47) % MCV 88.5 (78-100) fL MCH 27.7 (26-32) pg MCHC 31.3 L (32-36) g/dL RDW 14.8 H (11.5-14.0) % Plt Count 291 (150-450) x10^3/uL MPV 9.6 (7.5-11.0) fL Gran % 73.2 H (36.0-66.0) % Immature Gran % (Auto) 0.5 H (0.00-0.4) % Nucleat RBC Rel Count 0.0 (0.00-0.1) % Eos # (Auto) 0.35 (0-0.5) x10^3/uL Immature Gran # (Auto) 0.05 H (0.00-0.03) x10^3u/L Absolute Lymphs (auto) 1.42 (1.0-4.6) x10^3/uL Absolute Monos (auto) 0.75 (0.0-1.3) x10^3/uL Absolute Nucleated RBC 0.00 (0.00-0.01) x10^3u/L Lymphocytes % 14.7 L (24.0-44.0) % Monocytes % 7.8 (0.0-12.0) % Eosinophils % 3.6 (0.00-5.0) % Basophils % 0.2 (0.0-0.4) % Absolute Granulocytes 7.05 H (1.4-6.9) x10^3/uL Basophils # 0.02 (0-0.4) x10^3/uL PT 11.6 (9.4-12.5) SECONDS INR 1.10 (0.8-3.0) Sodium 135 L (137-145) mmol/L Potassium 4.1 (3.5-5.1) mmol/L Chloride 106 (98-107) mmol/L Carbon Dioxide 18 L (22-30) mmol/L Anion Gap 15.2 H (5-15) MEQ/L BUN 10 (7-17) mg/dL Creatinine 0.68 (0.52-1.04) mg/dL Estimated GFR > 60.0 ML/MIN Glucose 98 (74-106) mg/dL Lactic Acid (0.4-2.0) Calcium 9.0 (8.4-10.2) mg/dL Total Bilirubin 0.40 (0.2-1.3) mg/dL AST 18 (14-36) U/L ALT 11 (0-35) U/L Alkaline Phosphatase 90 (38-126) U/L Serum Total Protein 6.8 (6.3-8.2) g/dL Albumin 3.6 (3.5-5.0) g/dL Amylase 50 (30-110) U/L Lipase 28 (23-300) U/L Urinalys Dipstick Clnc Urine Color (YELLOW) Urine Appearance (CLEAR) Urine pH (5-6) Ur Specific Post (1.005-1.025) POC Urine Protein Conf (Negative) Urine Ketones (NEGATIVE) Urine Nitrite (NEGATIVE) Urine Bilirubin (NEGATIVE) Urine Urobilinogen (0-1) mg/dL Urine Leukocytes (NEGATIVE) Urine WBC (Auto) (0-5) /HPF Urine RBC (Auto) (0-2) /HPF Urine Bacteria (Auto) (NEGATIVE) /HPF Urine RBC (0-5) Cristhian/ul Ur Culture Indicated? Urine Glucose (NEGATIVE) mg/dL Stool Occult Blood (NEGATIVE) C. difficile Screen (NEGATIVE) C.difficile 027-NAP1-B1 (NEGATIVE) Influenza Type A Ag (NEGATIVE) Influenza Type B Ag (NEGATIVE) RSV (PCR) (Negative) SARS-CoV-2 (PCR) (NEGATIVE) 08/30/21 08/30/21 08/31/21 Range/Units 12:30 14:14 05:20 WBC 5.8 (4.0-10.5) x10^3/uL RBC 3.90 L (4.1-5.4) x10^6/uL Hgb 11.0 L (12.0-16.0) g/dL Hct 34.4 L (35-47) % MCV 88.2 (78-100) fL MCH 28.2 (26-32) pg MCHC 32.0 (32-36) g/dL RDW 15.2 H (11.5-14.0) % Plt Count 259 (150-450) x10^3/uL MPV 9.3 (7.5-11.0) fL Gran % 63.9 (36.0-66.0) % Immature Gran % (Auto) 0.5 H (0.00-0.4) % Nucleat RBC Rel Count 0.0 (0.00-0.1) % Eos # (Auto) 0.36 (0-0.5) x10^3/uL Immature Gran # (Auto) 0.03 (0.00-0.03) x10^3u/L Absolute Lymphs (auto) 1.06 (1.0-4.6) x10^3/uL Absolute Monos (auto) 0.64 (0.0-1.3) x10^3/uL Absolute Nucleated RBC 0.00 (0.00-0.01) x10^3u/L Lymphocytes % 18.2 L (24.0-44.0) % Monocytes % 11.0 (0.0-12.0) % Eosinophils % 6.2 H (0.00-5.0) % Basophils % 0.2 (0.0-0.4) % Absolute Granulocytes 3.72 (1.4-6.9) x10^3/uL Basophils # 0.01 (0-0.4) x10^3/uL PT (9.4-12.5) SECONDS INR (0.8-3.0) Sodium (137-145) mmol/L Potassium (3.5-5.1) mmol/L Chloride (98-107) mmol/L Carbon Dioxide (22-30) mmol/L Anion Gap (5-15) MEQ/L BUN (7-17) mg/dL Creatinine (0.52-1.04) mg/dL Estimated GFR ML/MIN Glucose (74-106) mg/dL Lactic Acid (0.4-2.0) Calcium (8.4-10.2) mg/dL Total Bilirubin (0.2-1.3) mg/dL AST (14-36) U/L ALT (0-35) U/L Alkaline Phosphatase (38-126) U/L Serum Total Protein (6.3-8.2) g/dL Albumin (3.5-5.0) g/dL Amylase (30-110) U/L Lipase (23-300) U/L Urinalys Dipstick Clnc Urine Color (YELLOW) Urine Appearance (CLEAR) Urine pH (5-6) Ur Specific Post (1.005-1.025) POC Urine Protein Conf (Negative) Urine Ketones (NEGATIVE) Urine Nitrite (NEGATIVE) Urine Bilirubin (NEGATIVE) Urine Urobilinogen (0-1) mg/dL Urine Leukocytes (NEGATIVE) Urine WBC (Auto) (0-5) /HPF Urine RBC (Auto) (0-2) /HPF Urine Bacteria (Auto) (NEGATIVE) /HPF Urine RBC (0-5) Cristhian/ul Ur Culture Indicated? Urine Glucose (NEGATIVE) mg/dL Stool Occult Blood (NEGATIVE) C. difficile Screen POSITIVE (NEGATIVE) C.difficile 027-NAP1-B1 PRESUMPTIVE NEGATIVE (NEGATIVE) Influenza Type A Ag NEGATIVE (NEGATIVE) Influenza Type B Ag NEGATIVE (NEGATIVE) RSV (PCR) NEGATIVE (Negative) SARS-CoV-2 (PCR) NEGATIVE (NEGATIVE) 08/31/21 08/31/21 Range/Units 05:20 05:50 WBC (4.0-10.5) x10^3/uL RBC (4.1-5.4) x10^6/uL Hgb (12.0-16.0) g/dL Hct (35-47) % MCV (78-100) fL MCH (26-32) pg MCHC (32-36) g/dL RDW (11.5-14.0) % Plt Count (150-450) x10^3/uL MPV (7.5-11.0) fL Gran % (36.0-66.0) % Immature Gran % (Auto) (0.00-0.4) % Nucleat RBC Rel Count (0.00-0.1) % Eos # (Auto) (0-0.5) x10^3/uL Immature Gran # (Auto) (0.00-0.03) x10^3u/L Absolute Lymphs (auto) (1.0-4.6) x10^3/uL Absolute Monos (auto) (0.0-1.3) x10^3/uL Absolute Nucleated RBC (0.00-0.01) x10^3u/L Lymphocytes % (24.0-44.0) % Monocytes % (0.0-12.0) % Eosinophils % (0.00-5.0) % Basophils % (0.0-0.4) % Absolute Granulocytes (1.4-6.9) x10^3/uL Basophils # (0-0.4) x10^3/uL PT (9.4-12.5) SECONDS INR (0.8-3.0) Sodium 136 L (137-145) mmol/L Potassium 4.3 (3.5-5.1) mmol/L Chloride 112 H (98-107) mmol/L Carbon Dioxide 17 L (22-30) mmol/L Anion Gap 13.1 (5-15) MEQ/L BUN 7 (7-17) mg/dL Creatinine 0.62 (0.52-1.04) mg/dL Estimated GFR > 60.0 ML/MIN Glucose 92 (74-106) mg/dL Lactic Acid 1.1 (0.4-2.0) Calcium 7.9 L (8.4-10.2) mg/dL Total Bilirubin 0.20 (0.2-1.3) mg/dL AST 15 (14-36) U/L ALT 9 (0-35) U/L Alkaline Phosphatase 63 (38-126) U/L Serum Total Protein 5.3 L (6.3-8.2) g/dL Albumin 2.6 L (3.5-5.0) g/dL Amylase (30-110) U/L Lipase (23-300) U/L Urinalys Dipstick Clnc Urine Color (YELLOW) Urine Appearance (CLEAR) Urine pH (5-6) Ur Specific Post (1.005-1.025) POC Urine Protein Conf (Negative) Urine Ketones (NEGATIVE) Urine Nitrite (NEGATIVE) Urine Bilirubin (NEGATIVE) Urine Urobilinogen (0-1) mg/dL Urine Leukocytes (NEGATIVE) Urine WBC (Auto) (0-5) /HPF Urine RBC (Auto) (0-2) /HPF Urine Bacteria (Auto) (NEGATIVE) /HPF Urine RBC (0-5) Cristhian/ul Ur Culture Indicated? Urine Glucose (NEGATIVE) mg/dL Stool Occult Blood (NEGATIVE) C. difficile Screen (NEGATIVE) C.difficile [id number] (NEGATIVE) Influenza Type A Ag (NEGATIVE) Influenza Type B Ag (NEGATIVE) RSV (PCR) (Negative) SARS-CoV-2 (PCR) (NEGATIVE) Radiology Exams: Radiology Procedures Category Date Time Status ABDOMEN AND PELVIS W/0 CONTRAS [CT] Stat Exams 08/30/21 11:53 Completed GALLBLADDER [US] Stat Exams 08/30/21 12:53 Completed Assessment/Plan (1) C. difficile colitis Current Visit: Yes Status: Acute Assessment & Plan: adding po vanc, currently receiving IV flagyl. Code(s): A04.72 - ENTEROCOLITIS D/T CLOSTRIDIUM DIFFICILE, NOT SPCF RECUR (2) Gall stones Current Visit: Yes Status: Acute Assessment & Plan: exam benign, incidental finding. surgery consult pending but suspect outpatient f/u Code(s): K80.20 - CALCULUS OF GALLBLADDER W/O CHOLECYSTITIS W/O OBSTRUCTION (3) Opiate addiction Current Visit: Yes Status: Acute Assessment & Plan: plan to add low dose norco to prevent withdrawal, spoke with nursing staff as patient has missed 2 doses and withdrawal is a pending concern, no suboxone available here. Code(s): F11.20 - OPIOID DEPENDENCE, UNCOMPLICATED
[2021-08-31] MEDS ORDERED: VANCOCIN 500 MG VIAL PO SCH (13:00)
[2021-08-31] MEDS: VANCOMYCIN HCL CAPSULE PO SCH ×3 (14:46→22:18)
[2021-08-31] MEDS: NORCO 5/325 MG PO SCH ×3 (14:47→22:18)
[2021-08-31] MEDS ORDERED: Ativan 1 MG PO PRN (15:48)
[2021-08-31] MEDS: PHENERGAN 25 MG PO PRN (19:52)
[2021-08-31] MEDS: DESYREL 50 MG PO SCH (22:18)
[2021-09-01] MEDS: Sodium Chloride 0.9% W/ 20 mEq KCl/LITER 1,000 ML IV SCH (02:49)
[2021-09-01] MEDS: FLAGYL 500 MG IVPB 500 MG/100 ML BAG IV SCH ×2 (06:15→15:00)
[2021-09-01 06:16] LABS: Absolute Neutrophil Ct (ANC) 3.35 x10^3/uL (1.4-6.9); Basophil (Absolute #) 0.01 x10^3/uL (0-0.4); Eosinophil % 10.9 % (0.00-5.0); Eosinophil (Absolute #) 0.68 x10^3/uL (0-0.5); Hematocrit 35.2 % (35-47); Hemoglobin 10.9 g/dL (12.0-16.0); Mean Cell Volume 90.7 fL (78-100); Mean Corpuscular Hemoglobin 28.1 pg (26-32); Mean Platelet Volume 9.3 fL (7.5-11.0); Monocyte (Absolute #) 0.66 x10^3/uL (0.0-1.3); Monocytes % 10.6 % (0.0-12.0); Neutrophil % 53.5 % (36.0-66.0); Platelet Count 267 x10^3/uL (150-450); Red Blood Count 3.88 x10^6/uL (4.1-5.4); Red Cell Distribution Width 15.3 % (11.5-14.0); White Blood Count 6.3 x10^3/uL (4.0-10.5)
[2021-09-01] MEDS: PHENERGAN 25 MG PO PRN (06:16)
[2021-09-01 06:43] LABS: ALBUMIN 2.6 g/dL (3.5-5.0); ALKALINE PHOSPHATASE 66 U/L (38-126); ANION GAP 10.8 MEQ/L (5-15); BLOOD UREA NITROGEN 4 mg/dL (7-17); CHLORIDE 113 mmol/L (98-107); Calcium 8.1 mg/dL (8.4-10.2); Carbon Dioxide 17 mmol/L (22-30); Creatinine 1 0.58 mg/dL (0.52-1.04); EST GLOMERULAR FILTRATION RATE > 60.0 ML/MIN; Glucose 84 mg/dL (74-106); MAGNESIUM 1.4 mg/dL (1.6-2.3); SGOT/AST 15 U/L (14-36); SGPT/ALT 8 U/L (0-35); SODIUM 138 mmol/L (137-145); Total Protein 5.2 g/dL (6.3-8.2)
--- NOTE | 2021-09-01 07:50 | PCM.DS ---
Discharge Summary Date of Admission: 08/30/21 15:43 Admitting Physician: EVERARDO MUNOZ DO Consults: Consults on Case 08/31/21 07:15 Consult Surgery ROUTINE Primary Care Provider: NO FAMILY DOCTOR Allergies Allergies gabapentin Allergy (Verified 08/30/21 12:10) propoxyphene [From Darvocet-N] Adverse Reaction (Verified 08/30/21 17:04) Rash Hospital Summary - Hospital Course Hospital Course: patient admitted with diarrhea and abd pain, found to have c diff and treated. incidental finding of gallstones, surgery consulted and will see her as an outpatient after discharge. she is tolerating po intake and doing well at the time of discharge. - Vitals & Intake/Output Vital Signs: Vital Signs Temperature 97.8 F 09/01/21 07:16 Pulse Rate 65 09/01/21 07:16 Respiratory Rate 16 09/01/21 07:16 Blood Pressure 104/58 09/01/21 07:16 O2 Sat by Pulse Oximetry 96 09/01/21 07:16 Intake & Output: Intake & Output 08/29/21 08/30/21 08/31/21 09/01/21 11:59 11:59 11:59 11:59 Intake Total 3464 2180 Balance 3464 2180 Weight 90.718 kg 90.718 kg 91.1 kg - Lab Result Diagrams: 09/01/21 05:20 09/01/21 05:20 Lab Results-Last 24 Hrs: Lab Results-Last 24 Hours 09/01/21 09/01/21 Range/Units 05:20 05:20 WBC 6.3 (4.0-10.5) x10^3/uL RBC 3.88 L (4.1-5.4) x10^6/uL Hgb 10.9 L (12.0-16.0) g/dL Hct 35.2 (35-47) % MCV 90.7 (78-100) fL MCH 28.1 (26-32) pg MCHC 31.0 L (32-36) g/dL RDW 15.3 H (11.5-14.0) % Plt Count 267 (150-450) x10^3/uL MPV 9.3 (7.5-11.0) fL Gran % 53.5 (36.0-66.0) % Immature Gran % (Auto) 0.8 H (0.00-0.4) % Nucleat RBC Rel Count 0.0 (0.00-0.1) % Eos # (Auto) 0.68 H (0-0.5) x10^3/uL Immature Gran # (Auto) 0.05 H (0.00-0.03) x10^3u/L Absolute Lymphs (auto) 1.50 (1.0-4.6) x10^3/uL Absolute Monos (auto) 0.66 (0.0-1.3) x10^3/uL Absolute Nucleated RBC 0.00 (0.00-0.01) x10^3u/L Lymphocytes % 24.0 (24.0-44.0) % Monocytes % 10.6 (0.0-12.0) % Eosinophils % 10.9 H (0.00-5.0) % Basophils % 0.2 (0.0-0.4) % Absolute Granulocytes 3.35 (1.4-6.9) x10^3/uL Basophils # 0.01 (0-0.4) x10^3/uL Sodium 138 (137-145) mmol/L Potassium 4.0 (3.5-5.1) mmol/L Chloride 113 H (98-107) mmol/L Carbon Dioxide 17 L (22-30) mmol/L Anion Gap 10.8 (5-15) MEQ/L BUN 4 L (7-17) mg/dL Creatinine 0.58 (0.52-1.04) mg/dL Estimated GFR > 60.0 ML/MIN Glucose 84 (74-106) mg/dL Calcium 8.1 L (8.4-10.2) mg/dL Magnesium 1.4 L (1.6-2.3) mg/dL Total Bilirubin 0.10 L (0.2-1.3) mg/dL AST 15 (14-36) U/L ALT 8 (0-35) U/L Alkaline Phosphatase 66 (38-126) U/L Serum Total Protein 5.2 L (6.3-8.2) g/dL Albumin 2.6 L (3.5-5.0) g/dL Micro Results-Entire Visit: Microbiology 08/30/21 12:12 Blood Culture - Preliminary Blood NO GROWTH TO DATE 08/30/21 12:10 Blood Culture - Preliminary Blood NO GROWTH TO DATE - Radiology Exams Ordered Rad Exams-Entire Visit: Radiology Procedures Category Date Time Status ABDOMEN AND PELVIS W/0 CONTRAS [CT] Stat Exams 08/30/21 11:53 Completed GALLBLADDER [US] Stat Exams 08/30/21 12:53 Completed Discharge Exam General Appearance: no apparent distress, alert Respiratory Exam: normal breath sounds, lungs clear, No respiratory distress Cardiovascular Exam: regular rate/rhythm, normal heart sounds Gastrointestinal/Abdomen Exam: soft, No tenderness, No mass Extremity Exam: normal inspection, normal range of motion Skin Exam: normal color, warm, dry Final Diagnosis/Problem List - Final Discharge Diagnosis/Problem (1) C. difficile colitis Current Visit: Yes Status: Acute Assessment & Plan: home on po vanc for 9 more days Code(s): A04.72 - ENTEROCOLITIS D/T CLOSTRIDIUM DIFFICILE, NOT SPCF RECUR (2) Gall stones Current Visit: Yes Status: Acute Assessment & Plan: outpatient surgery consult Code(s): K80.20 - CALCULUS OF GALLBLADDER W/O CHOLECYSTITIS W/O OBSTRUCTION (3) Opiate addiction Current Visit: Yes Status: Acute Code(s): F11.20 - OPIOID DEPENDENCE, UNCOMPLICATED - Discharge Disposition: Home, Self-Care Condition: Stable Prescriptions: New Vancomycin HCl [Vancocin HCl] 250 mg PO QID #36 cap Continue Buprenorphine HCl/Naloxone HCl [Suboxone 4 mg-1 mg Sl Film] 1 each SL BID Prazosin HCl 1 mg PO QHS Omeprazole 20 mg PO DAILY Multivitamin 1 each PO DAILY Ferrous Sulfate 325 mg [Feosol 325 mg] 325 mg PO DAILY Escitalopram Oxalate [Lexapro] 10 mg PO DAILY Atomoxetine HCl [Strattera] 40 mg PO DAILY Promethazine HCl 25 mg [Phenergan 25 mg] 25 mg PO Q6HPRN PRN PRN Reason: Nausea Trazodone HCl 50 mg [Desyrel 50 mg] 50 mg PO QHS Follow up with: LEANDRA WOOD MD [ACTIVE STAFF] -
[2021-09-01] MEDS: Lexapro PO SCH (10:33)
[2021-09-01] MEDS: FEOSOL 325 MG PO SCH (10:33)
[2021-09-01] MEDS: Protonix 40MG Tablet PO SCH (10:34)
[2021-09-01] MEDS: VANCOMYCIN HCL CAPSULE PO SCH ×3 (10:34→16:45)
[2021-09-01] MEDS: THERAGRAN MULTIVITAMIN PO SCH (10:34)
[2021-09-01] MEDS: NORCO 5/325 MG PO SCH ×3 (11:23→16:45)
[2021-09-01 11:44] VITALS: BP 124/79; PULSE 82; O2SAT 97
[2021-09-01] MEDS ORDERED: Pepcid 20 MG VIAL IV ONE (11:50)
[2021-09-01] MEDS ORDERED: Reglan 10 MG/2 ML IV ONE (11:51)
[2021-09-01] MEDS ORDERED: Transderm Scop 1.5MG Patch TOP ONE (11:51)
--- NOTE | 2021-09-03 08:01 | CONS ---
CONSULT DATE: 08/31/2021 REASON FOR CONSULT: Diarrhea. HISTORY: This 45-year-old female presents with one week of diarrhea and abdominal pain. She also has heme-positive stools. She denies chest pain, shortness of breath, fevers or chills. She denies nausea or vomiting. She denies any right upper quadrant after eating. 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 PAST MEDICAL HISTORY: Drug addiction, anxiety. PAST SURGICAL HISTORY: MEDICATIONS: Reviewed, see MAR. ALLERGIES: GABAPENTIN. PROPOXYPHENE. SOCIAL HISTORY: Positive for meth and tobacco. FAMILY HISTORY: Noncontributory. PHYSICAL EXAMINATION: GENERAL: No acute distress. HEENT: Sclera nonicteric. Extraocular movements intact. NECK: Supple. No JVD. CHEST: Nonlabored breathing. ABDOMEN: Soft, nondistended, tender to palpation to right mid and right lower abdomen with no guarding or rebound. EXTREMITIES: Minimal peripheral edema. NEURO: Awake, alert, oriented. PSYCH: Appropriate mood and affect. LAB DATA AND TESTS: CT scan showed gallstones without any evidence of acute cholecystitis. Laboratory studies remarkable for positive clostridium difficile and heme-positive. White blood cells 9.6, hemoglobin 13, PLT count 291,000. Total bilirubin 0.4, alkaline phosphatase 90. ASSESSMENT AND PLAN: Clostridium difficile, incidental cholelithiasis. It appears that her symptoms are all well described by this clostridium difficile infection which she is being treated for. I recommend continued medical treatment of this clostridium difficile infection. I do not believe she is having any symptoms currently from her gallstones. She has been informed of the common symptoms from gallstones and we will be happy to have her follow up with me or one of my partners in two to four weeks to further discuss possible elective cholecystectomy if the patient desires.
== END 2021-09-01 17:12 | disposition home or self-care (01) ==
LOC: ED 11:36 → MED SURG 15:43
PROVIDERS: ADMIT Family Medicine; ATTEND Family Medicine
DX: A04.72 Enterocolitis due to Clostridium difficile, not specified as recurrent (principal); K80.20 Calculus of gallbladder without cholecystitis without obstruction; F11.20 Opioid dependence, uncomplicated; F41.9 Anxiety disorder, unspecified; E86.9 Volume depletion, unspecified; R16.1 Splenomegaly, not elsewhere classified; Z72.0 Tobacco use; Z20.828 Contact with and (suspected) exposure to other viral communicable diseases; Z79.899 Other long term (current) drug therapy
CPT/HCPCS: 0241U; 36415; 74176; 76705; 80053; 81015; 82150; 83605; 83690; 83735; 85025; 85610; 87040; 87045; 87046; 87493; 96360; 96365; 96374; 96375; 99285; G0328; G0378; 82274; J1170; J1885; J2405; A9270-GY; J3370